=== PATIENT | female | born 1995 | race Two or more races ===

== ENCOUNTER 2018-02-02 22:23 | Emergency (ER) | payer OTHER ==
[~2018-02-02] VITALS: Ht 167.6 cm; Wt 63.5 kg
[~2018-02-02 22:23] MED LIST: IBUPROFEN600 MG ORAL
[2018-02-02] MEDS ORDERED: IBUPROFEN600 MG ORAL (22:55)
--- NOTE | 2018-02-02 23:04 | Emergency Room Report ---
History of Present Illness General Chief Complaint: Lower Extremity Injury Source: Patient Present Illness HPI 22yo healthy F p/w R ankle pain after rolling it in exercise class today, painful, nonradiating, no skin breaks, no n/t/weakness. Allergies: Coded Allergies: No Known Allergies (Unverified , 02/11/16) Patient History Past Medical History: see triage record Last Menstrual Period: 01/27/18 Now: No : 0 Para: 0 Reviewed Nursing Documentation: PMH: Agreed; PSxH: Agreed Nursing Documentation-PMH Past Medical History: No Stated History Review of Systems Musculoskeletal: Reports: no symptoms, see HPI, back pain, gout, joint pain, joint swelling, muscle pain, muscle stiffness, other All Other Systems: negative except mentioned in HPI Physical Exam Vital Signs Date Time Temp Pulse Resp B/P (MAP) Pulse Ox O2 Delivery O2 Flow Rate FiO2 02/02/18 22:33 97.8 100 16 120/79 98 Room Air 97.9 Sp02 EP Interpretation: reviewed, normal General Appearance: no apparent distress, alert, non-toxic Head: normocephalic Eyes: bilateral eye normal inspection, bilateral eye PERRL, bilateral eye EOMI ENT: normal voice Neck: normal inspection Respiratory: chest symmetrical, palpation of chest normal Cardiovascular #1: normal peripheral pulses Cardiovascular #2: 2+ dorsalis pedis (R), 2+ dorsalis pedis (L) Musculoskeletal: normal inspection, gait/station normal, normal range of motion Neurologic: alert, responsive, motor strength/tone normal, sensory intact, speech normal Psychiatric: judgement/insight normal, mood/affect normal Skin: normal color, no rash, warm/dry, normal turgor Lymphatic: no adenopathy Medical Decision Making Diagnostic Impression: Primary Impression: Ankle sprain ER Course NOrmal exam, [place] ankle rules negative, dc home with reassurance Last Vital Signs Date Time Temp Pulse Resp B/P (MAP) Pulse Ox O2 Delivery O2 Flow Rate FiO2 02/02/18 22:33 97.8 100 16 120/79 98 Room Air 97.9 Disposition: HOME, SELF-CARE Condition: Stable Scripts Ibuprofen* (MOTRIN*) 600 Mg Tablet 600 MG ORAL Q8H PRN for For Pain, #10 TAB 0 Refills Prov: YUMIKO BENNETT M.D 02/02/18 Departure Forms: Return to Work Return to Work in (Days): 1 Patient Instructions: Ankle Sprain YUMIKO BENNETT M.D February 02, 2018 23:04
[2018-02-02 23:26] VITALS: BP 0/0
== END 2018-02-02 23:26 | disposition home or self-care (01) ==
LOC: EMR 22:49
DX: S93.401A Sprain of unspecified ligament of right ankle, initial encounter (principal); X50.1XXA Overexertion from prolonged static or awkward postures, initial encounter; Y93.B9 Activity, other involving muscle strengthening exercises; Y92.89 Other specified places as the place of occurrence of the external cause
CPT/HCPCS: 99283